=== PATIENT | female | born 1950 | race Caucasian/White ===

== ENCOUNTER 2017-08-23 13:13 | Outpatient (CLI) | payer MEDICARE ==
--- NOTE | 2017-08-23 17:17 | XRAY Report ---
THREE VIEW LUMBAR SPINE: 08/23/2017 CLINICAL INDICATION: Pain. COMPARISON: 07/16/2014 FINDINGS: Frontal, lateral, cone down views of the lumbar spine demonstrate mild degenerative changes, stable. There is no evidence of interval compression fracture or subluxation. 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 Severe osteoarthritis of the left hip is noted. IMPRESSION: MILD DEGENERATIVE CHANGES IN THE LUMBAR SPINE. LIKELY AVASCULAR NECROSIS OF THE RIGHT FEMORAL HEAD, WITH COLLAPSE AND SEVERE OSTEOARTHRITIS. SEVERE OSTEOARTHRITIS OF THE LEFT HIP. TD: 08/23/2017 14:12
== END 2017-08-23 13:14 | disposition home or self-care (01) ==
LOC: DI 13:13
PROVIDERS: ATTEND Internal Medicine
DX: M54.5 Low back pain (principal); M16.0 Bilateral primary osteoarthritis of hip
CPT/HCPCS: 72100

== ENCOUNTER 2020-11-13 17:39 | Outpatient (CLI) | payer MEDICARE | END 2020-11-13 17:40 | disposition EMS.NT | LOC: EMS 17:39 | DX: Z03.89 Encounter for observation for other suspected diseases and conditions ruled out (principal) ==